=== PATIENT | female | born 1955 | race African-American/Black ===

== ENCOUNTER 2025-04-13 13:52 | Outpatient (AMB) | payer OTHER, SELFPAY ==
[2025-04-13 14:11] VITALS: BP 104/64; PULSE 73; TEMP 36.6; O2SAT 97; BMI 35.9
--- NOTE | 2025-04-13 14:11 | A.OFFPC_ITS ---
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 Osteoarthritis: The patient reports a longstanding history of osteoarthritis characterized by inflammation and significant joint pain, particularly in the knees. The pain has progressively worsened over time, leading to functional limitations, including a limp and the necessity to use both a cane and a walker for ambulation. She has previously undergone injections to alleviate knee pain and currently uses Tylenol to manage her symptoms. Unspecified Psychiatric Disorder: The patient has a complex psychiatric history involving the use of various medications, inclusive of lithium and risperidone. She currently resides in a [facility] custodial and denies any formal diagnosis of schizophrenia, as well as any recent psychiatric hospitalizations. Despite reported previous treatment and medication usage, she does not recall receiving psychiatric evaluations or encountering a psychiatrist recently. Insomnia: The patient experiences difficulties with sleep, which she manages through the administration of trazodone. She describes her sleep quality as acceptable with medication. Hypothyroidism: The patient recalls a history of thyroid issues and is uncertain about her current medication regimen for the condition. She has previously received treatment, though details regarding current levels and therapy are unclear. Tremors: The patient acknowledges experiencing tremors, which have been present for an unspecified duration. She is currently prescribed amantadine to manage these symptoms. Anemia: The patient reports a history of anemia for which she takes iron supplements. Additional details or lab results to assess the current status of her anemia were not provided. Surgical History: - No surgical history mentioned during t he visit. Medications: - Acetaminophen (Tylenol) for osteoarthr itis pain. - Amantadine for managing tremors. - Benztropine for psychiatric symptoms. - Ferrous sulfate for anemia. - [place] for psychiatric management. - Risperidone for psychiatric management . - Trazodone for insomnia. Social History: - Resides in a custodial provided by [facility]. - Not employed; participates in [employer] - Denies use of tobacco or illicit drugs . - Functional limitations necessitate use of a cane and a walker for ambulation. Family History: - No family history information discusse d during the visit. Diagnostic Results: - Labs: The patient reports having a dario mogram approximately three months ago; specific results were not discussed. Past Medical History - Osteoarthritis: History of joint pain, particularly in the knees. - schizophrenia: History of treatment wi th lithium, risperidone, and benztropine. - Hypothyroidism: Previous treatment for thyroid condition. - Tremors: Symptomatic management with a mantadine. - Insomnia: Managed with trazodone. - Anemia: Managed with iron supplements. Health Maintenance - Mammogram: Last conducted approximatel y three months ago; follow-up details are unspecified. - Colorectal Cancer Screening: Opted for stool-based test (Cologuard) over colonoscopy, which was arranged. - Cervical Cancer Screening: Denies Pap smear history; expresses refusal of cervical cancer screening. - Osteoporosis Screening: Uncertain abou t prior DEXA scan; discussed potential need for assessment. - Discussions included the importance of regular screening and preventative health measures. review of external medical record This summary is for a 69-year-old female with a complex medical history who resides in a custodial and is often accompanied to appointments by a shelter director. She has multiple chronic conditions managed by primary care, orthopedics, endocrinology, hematology, and psychiatry. The patient is often a poor historian, and her care involves managing chronic symptoms, ongoing monitoring of stable conditions, and coordinating with her various specialists. The patient has a long-standing history of schizophrenia, for which she is on a stable medication regimen including risperidone and lithium. Associated with her psychiatric medications, she has long-standing hyperprolactinemia, which is monitored by endocrinology and has been stable. She also has hypothyroidism, well-controlled with levothyroxine, and a small, stable right thyroid nodule confirmed on serial ultrasounds.?A DXA scan in June 2022 showed normal bone density. A significant source of morbidity is severe, stiff, varus osteoarthritis of both knees. Imaging from December 2022 and May 2024 confirmed severe degenerative changes.?This condition causes chronic pain (rated 8/10), swelling, stiffness, and gait instability, leading to a history of falls, including one in December 2022 that prompted an ER visit.?Treatment has included intra-articular corticosteroid injections with limited benefit, and she now manages pain with scheduled acetaminophen.?She has consistently declined orthopedic surgery, physical therapy, and the use of assistive devices like a cane or walker. The patient has been evaluated by hematology for chronic, stable, normocytic anemia. The workup has been largely unrevealing, suggesting anemia of chronic disease or related to mild chronic kidney disease (eGFR 51).?There is no evidence of iron deficiency, hemolysis, or hematologic malignancy.?Management consists of monitoring, reduced-frequency iron supplementation, and folic acid.?Referrals to nephrology have been placed for her kidney function. Other significant medical problems include morbid obesity (BMI ~35-45), constipation, scarring alopecia, and dizziness/vertigo.?Health screenings have been generally reassuring; a Cologuard test in 2022 was negative, and a screening mammogram in March 2024 showed no evidence of malignancy.?A limited breast ultrasound in August 2022 showed probably benign findings.?CT scans of her head and cervical spine in December 2022, following her fall, were negative for acute hemorrhage but did show chronic small vessel ischemia and degenerative changes. In April 2024, she presented to an urgent care clinic with respiratory symptoms and tested positive for COVID-19. She was hemodynamically stable and managed with supportive care.?The patient has consistently declined recommended vaccinations.?The overall plan involves continued medical management of her numerous chronic conditions, regular follow-up with her specialty providers, and ongoing encouragement for preventative care and safe mobility practices. She is scheduled for follow-up with hematology and primary care. The patient's current diagnoses include: Schizophrenia, Hyperprolactinemia (medication-induced), Hypothyroidism, Thyroid Nodule, Severe Bilateral Knee Osteoarthritis, Chronic Anemia (likely of chronic disease/renal insufficiency), Mild Chronic Kidney Disease, Morbid Obesity, Scarring Alopecia, and Dizziness/Vertigo. Her current active medication list as of her last primary care visit includes: acetaminophen, amantadine, benztropine, trazodone, risperidone, lithium, ferrous sulfate, levothyroxine, and meclizine, with senna as needed.?Folic acid was also recently added by her dental insurance coordinator. REPLACED BY [facility] Medical History (Updated 04/14/25 @ 10:24 by Hima Greer MD) Vertigo History of fall Osteoarthritis Family History (Updated 04/13/25 @ 14:14 by Annie Alexandra CMA) Mother No problems noted. Father No problems noted. Social History Housing: Assisted Living Facility Patient Tobacco Use Status: Never used Tobacco e-Cigarette/Vaping Use: Never Used service: No Current occupational status: disabled Cognitive needs: Yes (cane) Hearing needs: No Vision needs: Yes (glasses) Questionnaire PHQ-9 Over the last 2 weeks, how often have you been bothered by any of the following problems? 1. Little interest or pleasure in doing things: not at all 2. Feeling down, depressed, or hopeless: not at all 3. Trouble falling or staying asleep, or sleeping too much: not at all 4. Feeling tired or having little energy: not at all 5. Poor appetite or overeating: not at all 6. Feeling bad about yourself - or that you are a failure or have let yourself or your family down: not at all 7. Trouble concentrating on things, such as reading the newspaper or watching television: not at all 8. Moving or speaking so slowly that other people could have noticed. Or the opposite - being so fidgety or restless that you have been moving around a lot more than usual: not at all 9. Thoughts that you would be better off or of hurting yourself in some way: not at all Total score: 0 Depression Screening Interpretation: Negative Depression Screening Done: Yes Source: Developed by Drs. Joel Hernandez, Renetta Gilman, Antwan Ortega and colleagues, with an educational nigel from [employer]. Thrive Questionnaire Date Thrive assessed: 04/13/25 I am a: Patient What is your living situation today?: I have a steady place to live Within the past 12 months, did the food you bought not last and you didn't have the money to get more?: Never true Within the past 12 months, did you worry whether your food would run out before you got money to buy more?: Never true Do you have trouble paying for medicines?: No Do you have trouble getting transportation to medical appointments?: No Do you have trouble paying your heating and electricity bill?: No Do you have trouble taking care of your child, family member or friend?: No Are you currently unemployed and looking for a job?: No Are you interested in more education?: No Please select the resources that you would like help with: None Currently or been in a relationship where the following occur: No concerns reported THRIVE Score: 0 AUDIT C Alcohol Use Questionnaire (AUDIT-C) 1. How often do you have a drink containing alcohol?: Never Total Score: 0 JEWEL-7 AMB Questionnaire JEWEL-7 Feeling nervous, anxious, or on edge: 0 = Not at all Not being able to stop or control worryin = Not at all Worrying too much about different things: 0 = Not at all Trouble relaxin = Not at all Being so restless that it is hard to sit still: 0 = Not at all Becoming easily annoyed or irritable: 0 = Not at all Feeling afraid as if something awful might happen: 0 = Not at all Total JEWEL-7 score (0-4 normal; 5-9 mild; 10-14 moderate; 15-21 severe): 0 Source: Developed by Drs. Joel Hernandez, Renetta Gilman, Antwan Ortega and colleagues, with an educational nigel from [employer]. Review of Systems Narrative Review of Systems - Musculoskeletal: Reports joint pain and difficulty ambulating. - Neurological: Reports having tremors. - Psychiatric: Reports use of trazodone for sleep improvement. - Genitourinary: Reports normal urination. - Gastrointestinal: Reports regular bowel movements. 10-point ROS reviewed and negative except as noted in HPI Physical exam (Primary Care) Vital Signs: Last Vital Signs Temp 97.9 F 04/13/25 14:11 Pulse 73 04/13/25 14:11 BP 104/64 04/13/25 14:11 Pulse Ox 97 04/13/25 14:11 Oxygen Delivery Method Room Air 04/13/25 14:11 BMI result Body Mass Index 35.9 Tobacco/Smoking Status: Tobacco use Status Tobacco use date assessed 04/13/25 04/13/25 14:16 Patient Tobacco Use Status Never used Tobacco 04/13/25 14:16 e-Cigarette/Vaping Use Never Used 04/13/25 14:16 PHQ-9: PHQ-9 Score PHQ-9: Total score 0 04/13/25 15:46 Depression Screening Interpretation: Negative Thrive Assessment: Date of Thrive Assessment Date Thrive assessed 04/13/25 04/13/25 14:16 Currently or been in a relationship where the following occur: No concerns reported Narrative Physical Exam General: Well-appearing, in no acute distress. Vital signs: Within normal limits. HEENT: Normocephalic, atraumatic. PERRLA, EOMI. Conjunctiva clear, sclera anicteric. Oropharynx clear, mucous membranes moist. TMs intact bilaterally. Neck: Supple, no lymphadenopathy, no thyromegaly, no JVD or carotid bruits. Cardiovascular: RRR, normal S1/S2, no murmurs, rubs, or gallops. Peripheral pulses 2+ and symmetric. No edema. Respiratory: Lungs clear to auscultation bilaterally, no wheezes, rales, or rhonchi. Normal effort. Abdomen: Soft, non-tender, non-distended. Normoactive bowel sounds. No hepatosplenomegaly, no masses. MSK: Full range of motion, no joint swelling or deformity. gait with right side limp. Patient uses a cane and has a limp, possibly due to osteoarthritis. Skin: Warm, dry, intact. No rashes, lesions, or pallor. sarring alopecia predominantly posterior of the scalp Neuro: Alert and oriented x3. Cranial nerves II-XII intact. Strength 5/5 throughout. Sensation intact. Reflexes 2+ symmetric. Normal coordination . Psych: Appropriate mood and flat affect poor historian. Normal judgment and insight. Patient resides in a custodial and takes medications including lithium, risperidone, trazodone, benztropine, acetaminophen, ferrous sulphate, levothyroxine, and Tylenol. History of schizophrenia. No available objective history of seeing a psychiatrist, child care teacher mentions seeing a Dr. Garcia Office Procedures Flu Questionnaire Does the patient have a severe egg allergy?: No Does the patient have severe life threatening allergies?: No Does the patient have a fever or illness today?: No Has the patient ever had Guillain-Stateline Syndrome?: No Has the patient ever had any past reaction to a flu shot?: No Immunizations Fluarix [id number] (PF) 45 mcg (15 mcg x 3)/0.5 mL IM syringe Performing Provider: Hima Greer MD Performing Location: [facility] Administered by: Annie Alexandra CMA on 04/13/25 15:46 Dose Route Admin Location Dispensed Lot Number Expiration Date NDC [employer] Member 0.5 mL IM Left Deltoid 0.5 mL [id number] 10/23/25 51599-291-12 [employer] VIS Given Date VIS Provided VIS Publication Date 04/13/25 Single Vaccine 24 Eligibility Eligibility Date Funding Source Not [facility] Eligible 04/13/25 Private Coding Level of Care Code New Pt Level 4 (41280) Add On Problem Visit Only Diagnoses Hyperprolactinemia E22.1 Schizophrenia F20.9 Hypothyroid E03.9 Thyroid nodule E04.1 Osteoarthritis of both knees M17.0 Chronic pain G89.29 Use of cane as ambulatory aid Z99.89 Normocytic anemia D64.9 Chronic kidney disease N18.9 Scarring alopecia L66.9 Constipation K59.00 Assessment & Plan Assessment & Plan (1) Hyperprolactinemia: Code(s): E22.1 - Hyperprolactinemia Category: Medical (2) Schizophrenia: Code(s): F20.9 - Schizophrenia, unspecified Category: Medical (3) Hypothyroid: Code(s): E03.9 - Hypothyroidism, unspecified Category: Medical (4) Thyroid nodule: Code(s): E04.1 - Nontoxic single thyroid nodule Category: Medical (5) Osteoarthritis of both knees: Code(s): M17.0 - Bilateral primary osteoarthritis of knee Category: Medical (6) Chronic pain: Code(s): G89.29 - Other chronic pain Category: Medical (7) Use of cane as ambulatory aid: Code(s): Z99.89 - Dependence on other enabling machines and devices Category: Medical (8) Normocytic anemia: Code(s): D64.9 - Anemia, unspecified Category: Medical (9) Chronic kidney disease: Code(s): N18.9 - Chronic kidney disease, unspecified Category: Medical (10) Scarring alopecia: Code(s): L66.9 - Cicatricial alopecia, unspecified Category: Medical (11) Constipation: Code(s): K59.00 - Constipation, unspecified Category: Medical Plan Consent Verbal consent was obtained for routine blood work to assess sugar levels, urine, blood counts, and vitamin levels. The potential benefits and risks of these tests were discussed, and the patient understood the need for regular monitoring given her health conditions. Additionally, the patient consented to a stool-based colorectal cancer screening test after reviewing the benefits of this method over a colonoscopy, including the non-invasive nature and capability for early detection of any abnormalities. Patient was informed and verbally consented to the use of an ambient scribe for clinic note documentation during this visit. Plan 1. Osteoarthritis - Administer Tylenol for pain management. - Consider further investigational imaging to assess joint status if symptoms persist. 2. Schizophrenia Psychiatric Disorder - Continue current psychiatric medications, including lithium, risperidone, and benztropine. - Obtain psychiatric records for a more comprehensive understanding of her diagnosis. 3. Insomnia - Continue trazodone as per current regimen for sleep management. 4. Hypothyroidism - Verify patient's current medication status and consider re-evaluation of thyroid function with lab tests as necessary. 5. Tremors - Continue amantadine for symptom control. Monitor for side effects or need for dosage adjustment. 6. Anemia - Ensure adherence to iron supplementation; consider laboratory evaluation to assess current anemia status. Discussion Notes I emphasized the significance of maintaining her health through routine pre ventative care and regular follow-ups, even in the absence of symptomatic complaints. We discussed the need for laboratory tests to provide a comprehensive baseline for her metabolic status and medication management, such as kidney function given her lithium usage. We reviewed colorectal cancer screening options and the logistics of the Cologuard test, which she preferred. I highlighted the necessity for coordination with her custodialhome office representative concerning scheduling future appointments and preserving engagement in continuous care. Patient Instructions - Proceed to laboratory for blood work for baseline metabolic status. - A stool test kit for colon cancer (Cologuard) will be mailed for at-home sample collection. - Book a follow-up appointment in approximately two weeks to discuss lab results. - Maintain current medications as prescribed. Medical Decision Making Upon evaluating her complex medical history, the focus is on obtaining objective data through laboratory tests to assess her baseline metabolic function, including renal status relevant to her medication regimen. Given her reluctance for invasive procedures, the decision was made to pursue stool-based colorectal cancer screening. Her refusal of cervical cancer screening remains noted; however, it is crucial to keep emphasizing the importance of these preventive measures in future discussions. Coordinating with her psychiatric care providers and maintaining communication with her support system at the custodial are necessary to ensure a holistic, cohesive management approach. Total Time Statement 45 min Total time spent caring for the patient today includes pre-visit chart review, documentation, review of laboratory and diagnostic imaging results, medication reconciliation, medically necessary evaluation, counseling on diagnoses, care coordination, ordering appropriate tests and medications, review of tests performed by other providers, reporting test results to the patient, and communication with other healthcare providers. Orders: Orders Complete Blood Count Auto Diff 04/13/25 Z13.9 - Encounter for screening, unspecified TSH reflex Free T4 04/13/25 Z13.9 - Encounter for screening, unspecified HIV Ab/Ag 04/13/25 Z13.9 - Encounter for screening, unspecified Hemoglobin A1c 04/13/25 Z13.9 - Encounter for screening, unspecified Magnesium 04/13/25 Z13.9 - Encounter for screening, unspecified [place] 04/13/25 Z13.9 - Encounter for screening, unspecified Influenza [id number] Immunization 04/13/25 Z23 - Encounter for immunization Hepatitis B Surface Antigen 04/13/25 Z13.9 - Encounter for screening, unspecified Syphilis Screen 04/13/25 Z13.9 - Encounter for screening, unspecified Comprehensive Met. Panel 04/13/25 Z13.9 - Encounter for screening, unspecified Hepatitis C Antibody 04/13/25 Z13.9 - Encounter for screening, unspecified UA CC w/rflx Micro + Cult 04/13/25 Z13.9 - Encounter for screening, unspecified Lipid Panel 04/13/25 Z13.9 - Encounter for screening, unspecified Vitamin B12 and Folate 04/13/25 Z13.9 - Encounter for screening, unspecified Hepatitis B Surface Antibody 04/13/25 Z13.9 - Encounter for screening, unspecified Vitamin D 25-OH (D2 and D3) 04/13/25 Z13.9 - Encounter for screening, unspecified
--- OUTSIDE RECORDS SUMMARY | 2025-04-13 15:31 | XMS_ITS | Encounter Summary ---
Author Organization [facility] Prior to 02/25/2024 Address [address] [place] [address] Care Team Providers Care Utility Plant Operative Name Role Phone Mario Camarena MD Primary Care Provider Unavail able Randy Small MD Primary Care Provider [phone] Encounter Details Date Type Department Care Team Description 10/21/2010 Release of Information Medical Records [address] [place] [id number] Abstract, Provider Social History Tobacco Use Types Packs/Day Years Used Date Smoking Tobacco: Former Cigarettes 1 Smokeless Tobacco: Never Alcohol Use Standard Drinks/Week Comments No 0 (1 standard drink = 0.6 oz pur e alcohol) Sex Assigned at Date Recorded Not on file Job Start Date Occupation Industry Not on file Not on file Not on file documented as of this encounter Plan of Treatment Not on file documented as of this encounter Visit Diagnoses Not on filedocumented in this encounter Care Teams Utility Plant Operative Relationship Specialty Start Date End Date Mario Camarena MD PCP - General 09/11/10 11/29/19 Randy Small MD [address] [place] [id number] PCP - General Internal Medicine 11/30/19 documented as of this encounter
--- OUTSIDE RECORDS SUMMARY | 2025-04-13 15:31 | XMS_ITS | Encounter Summary ---
Author Organization [facility] Prior to 02/25/2024 Address [address] [place] [address] Care Team Providers Care Safe And Vault Installer Name Role Phone Mario Camarena MD Primary Care Provider Unavail able Randy Small MD Primary Care Provider [phone] Encounter Details Date Type Department Care Team Description 08/02/2017 Refill Adult Medicine [address] [address] Mario Camarena MD Social History Tobacco Use Types Packs/Day Years [...] on filedocumented in this encounter Care Teams Safe And Vault Installer Relationship Specialty Start Date End Date Mario Camarena MD PCP - General 09/11/10 11/29/19 Randy Small MD [address] [place] [id number] PCP - General Internal Medicine 11/30/19 documented as of this encounter
--- OUTSIDE RECORDS SUMMARY | 2025-04-13 15:31 | XMS_ITS | Encounter Summary ---
Author Organization [facility] Prior to 02/25/2024 Address [address] [place] [address] Care Team Providers Care Patient Ombudsperson Name Role Phone Randy Small MD Primary Care Provider [phone] Reason for Visit * Reason Comments E-prescribe Rx Request Encounter Details Date Type Department Care Team Description 02/13/2025 Refill Adult Medicine [address] [address] Mayelin Longo NP [address] [place] [id number] E-prescribe Rx Request Social History Tobacco Use Types Packs/Day Years Used Date Smoking Tobacco: Never Cigarettes 1 Smokeless Tobacco: Never Alcohol Use Standard Drinks/Week Comments No 0 (1 standard drink = 0.6 oz pur e alcohol) Sex Assigned at Date Recorded Not on file Job Start Date Occupation Industry Not on file Not on file Not on file documented as of this encounter Plan of Treatment Not on file documented as of this encounter Visit Diagnoses Diagnosis Hypothyroidism, unspecified type documented in this encounter Care Teams Patient Ombudsperson Relationship Specialty Start Date End Date Randy Small MD [address] [place] [id number] PCP - General Internal Medicine 11/30/19 documented as of this encounter
--- OUTSIDE RECORDS SUMMARY | 2025-04-13 15:31 | XMS_ITS | Encounter Summary ---
Author Organization [facility] Prior to 02/25/2024 Address [address] [place] [address] Care Team Providers Care Senior Enlisted Advisor Name Role Phone Randy Small MD Primary Care Provider [phone] Reason for Visit * Reason Onset Date Comments Testing 01/22/2021 [facility] Encounter Details Date Type Department Care Team Description 01/22/2021 Telephone Adult Medicine [address] [address] Randy Small MD [address] [place] [id number] Testing ([facility]) Social History Tobacco Use Types Packs/Day Years Used Date Smoking Tobacco: Never Cigarettes 1 Smokeless Tobacco: Never Alcohol Use Standard Drinks/Week Comments No 0 (1 standard drink = 0.6 oz pur e alcohol) Sex Assigned at Date Recorded Not on file Job Start Date Occupation Industry Not on file Not on file Not on file COVID-19 Exposure Response Date Recorded In the last month, have you been in contact with someone who was confirmed or suspected to have Coronavirus / COVID-19? No / Unsure 01/15/2021 1:42 PM EDT documented as of this encounter Miscellaneous Notes * Telephone Encounter - Randy Small MD - 01/22/2021 12:01 PM EDT Screening mammogram order signed * Telephone Encounter - Madison Garner M.A. - 01/22/2021 11:32 AM EDT Last office visit 12/26/20 with you, no record of mammo of file with us Order pended * Telephone Encounter - Gilma Wick - 01/22/2021 9:59 AM EDT Patient is requeting a referral for a Mamogram, please call her worker at [facility] to schedule the appointment. documented in this encounter Plan of Treatment Not on file documented as of this encounter Visit Diagnoses Diagnosis Encounter for screening mammogram for malignant neoplasm of breast- Primary Other screening mammogram documented in this encounter Care Teams Senior Enlisted Advisor Relationship Specialty Start Date End Date Randy Small MD [address] [place] [address] PCP - General Internal Medicine 11/30/19 documented as of this encounter
--- OUTSIDE RECORDS SUMMARY | 2025-04-13 15:31 | XMS_ITS | Encounter Summary ---
[facility] Address [address] [place] [address] Encounters * CPT with [facility] at [facility] [employer] on 2025-01-30 { reasonForRequest : nausea/abdominal pain , patientReports : Vague abdominal pain greater than 24 hours; Nausea with or without vomiting , denies :[& quot;Sharp focal or diffuse abdominal pain , Vomiting blood/coffee ground material , Bloating, jaundice new onset with pain , Nausea and vomiting greater than 2 hours with abdominal pain , Tearing pain that radiates to back , Food Impaction ,"Constipation , Diarrhea no blood in stool , Inability to tolerate foods, fluids or daily medications ], chiefComplaints : Abdominal Pain, Nausea / Vomit ing , pmh : Severe Persistent Mental Illness (SPMI), Rheumatoid Arthritis, Anemi a, Chronic Pain , allergies : No Known Drug Allergies , otherAllergies : , painAssessment : , visitOutcome : ,"additionalComments : 69 y.o female complains of Abdominal Pain, Nausea / Vomiting\[facility] referral. patient states symptoms started yesterday. Denies any fever but endorses chills and body aches. denies any nasal congestion. denies any coughing or sore throat. endorses nausea and vomiting x 1 yesterday but nausea continues. denies any loose stool. last bowel movement yesterday morning. endorses abdominal pain and comes and goes in the lower stomach. she cant recall anything that makes the pain worse. patient hasn't tried to take anything for her stomach. patient denies any kidney issues and is not on any blood thinners. requesting insted assessment. unsure of sick contacts but goes to a day program. \nI provided information on the mobile health provider response time and advised the patient and/or caregiver to monitor reported signs and symptoms. I discussed thewarning signs of when to seek emergency care. } Sent to a call for a pt complaining of nausea and vomiting. [facility] arrives on scene, pt is alert and oriented, airway is patent. Pt lives in a retirement, and has orders for Meclizine 12.5mg TID for dizziness. Staff states pt doesn't have any meclizine and hasn't needed it recently. Pt complains of nausea, vomiting x 1, diffuse abd pain yesterday, and headache and dizziness today. Pt denies cp, sob,diarrhea, fever, or loc. Pt has been eating/drinking normally. Allergies verified: NKDA; (sitting) BP:131/88, P:71, RR:18, SpO2:95% RA, T:98.2; (standing) BP:126/85, P:82; Head: unremarkable; Lung sounds: clear bilaterally; Abdomen: soft, non-tender, no distention; Back: unremarkable; Extremities: u nremarkable; Skin: pink, warm, dry; Rapid covid/flu test: neg; [facility] consulted and orders Zofran ODT 4mg SL and Meclizine 25mg PO. 5 med rights verified; Zofran ODT 4mg SL and Meclizine 25mg PO administered without incident. Staff advised to follow up with pt's PCP regarding Meclizine prescription. Red flags discussed. Pt has no further questions. IV_(FLUIDS_AND/OR_MEDICATION), MEDICATION_IM, EKG, POC_BLOODWORK, URINE_DIPSTICK Written by Medical [facility] on 2025-01-30
--- OUTSIDE RECORDS SUMMARY | 2025-04-13 15:31 | XMS_ITS | Clinical Summary ---
Author Organization [facility] [address] [facility] Building Address [address] [place] [address] Phone Care Team Providers Care Sports Athletic Trainer Name Role Phone Unavailable Primary Care Provider Unavailabl e Allergies No known active allergies Medications benztropine (COGENTIN) 1 mg tablet Take 1 Tablet by mouth every morning AND 2 Tablets every evening. 3 Active lithium (ESKALITH) 450 mg CR tablet Take 1 tablet (450 mg total) by mouth at bedtime. Active risperiDONE (RisperDAL) 2 mg tablet Take 1 tablet (2 mg total) by mouth 3 (three) times a day. Active traZODone (DESYREL) 50 mg tablet 0 Active amantadine (SYMMETREL) 100 mg tablet Take 1 tablet (100 mg total) by mouth 3 (three) times a day. 4 Active acetaminophen (TYLENOL 8 HOUR) 650 mg 8 hr tabletIndications:O steoarthritis of both knees, unspecified osteoarthritis type Take 1 tablet (650 mg total) by mouth 3 (three) times a day. Do not crush, chew, or split. 90 tablet 11 5 05/26/19 26 Active senna (SENOKOT) 8.6 mg tablet Take 2 tablets (17.2 mg total) by mouth 1 (one) time each day if needed for constipation . 60 tablet 2 5 Active ferrous sulfate 325 mg (65 mg elemental iron) tabletIndications:I debbie deficiency anemia, unspecified Take 1 tablet (325 mg total) by mouth 1 (one) time each day. 90 tablet 1 5 Active meclizine (ANTIVERT) 12.5 mg tablet Take 1 tablet (12.5 mg total) by mouth 1 (one) time each day if needed (VERTIGO). 30 tablet 3 5 Active folic acid (FOLVITE) 1 mg tablet Take 1 tablet (1 mg total) by mouth 1 (one) time each day. 90 each 1 5 01/31/20 26 Active folic acid (FOLVITE) 1 mg tablet Take 1 tablet (1 mg total) by mouth 1 (one) time each day. 90 each 1 5 01/31/20 26 Active levothyroxine (SYNTHROID, LEVOTHROID) 25 mcg tablet Take 1 tablet (25 mcg total) by mouth 1 (one) time each day. 90 tablet 5 Active Active Problems Problem Noted Date Diagnosed Date Primary osteoarthritis of left knee 05/31/2024 Thyroid nodule 02/10/2023 Overview (02/11/2024): Tiny nodule, repeat us in 1 year (fall 2023) ordered Primary osteoarthritis of right knee 11/14/2018 Hypothyroid 02/09/2014 Hyperprolactinemia 07/31/2013 Overview (02/11/2024): Level 106.9 on labs ordered by [facility] 07/07/13. Scarring alopecia 09/02/2011 Iron deficiency anemia 10/17/2010 Obesity (BMI 30-39.9) 10/17/2010 Schizophrenia 10/17/2010 Resolved Problems Problem Noted Date Diagnosed Date Resolved Date Elevated serum creatinine 06/13/2024 High glucose 06/13/2024 10/11/2024 Gait instability 05/31/2024 10/11/2024 History of COVID-19 01/13/2023 10/12/19 25 Overview (05/30/2024): 01/04/23 - incidental at ED for other concern. Completed paxlovid Encounters Date Type Department Care Team Description 02/21/2025 Telephone Internal Medicine - [address] [phone] Sena Mchugh MD 02/20/2025 Telephone Internal Medicine - [address] [phone] Sena Mchugh MD 01/31/2025 Results Follow-Up [facility] Hematology Oncology [address] [place] [phone] Michelle Maya PA 01/30/2025 11:30 AM EDT Office Visit [facility] Hematology Oncology [address] [place] [phone] Michelle Maya PA Iron deficiency anemia, unspecified iron deficiency anemia type (Primary Dx); Nutritional anemia; Stage 3a chronic kidney disease (CMS/HCC V24, CMS/HCC V28) 01/26/2025 1:50 PM EDT - 01/26/2025 11:59 PM EDT Hospital Encounter Radiology Department - [address] [phone] Encounter for screening mammogram for malignant neoplasm of breast Discharge Disposition: Home or Self Care 01/15/2025 Telephone Internal Medicine - [address] [phone] Randy Small MD from Last 3 Months Immunizations Immunization Administration Dates Next Due Influenza Quadravalent, MDCK , 0.5ml, preservative free (Flucelvax) 6mo and older 01/09/2020,06/23/2018 Influenza trivalent, 0.5mL, preservative free (Fluarix; FluLaval; Fluzone) ages 6mo and older (Afluria) 3 years and older 02/22/2015,02/09/2014,02/24/2013,2011 Influenza, Unspecified 01/26/2022 Tdap Tetanus diptheria acell ular pertussis (Boostrix; Adacel) 7yo and older 10/17/2010 Medical History Medical History Date Comments History of COVID-19 01/13/2023 DX:History o f COVID-19; COMMENT: 01/04/23 - incidental at ED for other concern. Completed paxlovid Thyroid nodule 02/10/2023 DX:Thyroid nodul e; COMMENT: Tiny nodule, repeat us in 1 year (fall 2023) ordered Family History Medical History Relation Name Comments Diabetes Mother Breast cancer Neg Hx Relation Name Status Comments Mother Social History Tobacco Use Types Packs/Day Years Used Date Smoking Tobacco: Never Cigarettes Smokeless Tobacco: Never Tobacco Cessation:Counseling Given: Not Answered Alcohol Use Standard Drinks/Week Comments No 0 (1 standard drink = 0.6 oz pur e alcohol) Comments No Sex and Gender Information Value Date Recorded Sex Assigned at Not on file Legal Sex Female 7:52 AM EST Gender Identity Not on file Sexual Orientation Not on file Obstetrics History Para Term AB IAB SAB Ectopic Multiple Livin g Live Births 1 Date Outcome GA Total Labor Labor/2nd/3rd Weight Sex Type Anes PTL Louisa A1 A5 Name Clin Term Last Filed Vital Signs Vital Sign Reading Time Taken Comments Blood Pressure 105/39 01/30/2025 11:40 AM EDT Pulse 62 01/30/2025 11:40 AM EDT Temperature 36.1 C (97 F) 01/30/2025 11:40 AM EDT Respiratory Rate - - Oxygen Saturation 100% 01/30/2025 11:40 AM EDT Inhaled Oxygen Concentration - - Weight 93.9 kg (207 lb) 01/30/2025 11:40 AM EDT Height 165.1 cm (5' 5 ) 01/30/2025 11:40 AM EDT Body Mass Index 34.45 01/30/2025 11:40 AM EDT Plan of Treatment Upcoming Encounters Date Type Department Care Team (Late st Contact Info) Description 07/31/2025 11:30 AM EDT Office Visit [facility] Hematology Oncology [address] [place] [phone] Michelle Maya PA [address] [place] [address] Health Maintenance Due Date Last Done Comments Zoster Vaccines (1 of 2) 1976 Pneumococcal Vaccine: 50+ Years (1 of 1 - PCV) 08/28/2007 COVID-19 Vaccine (3 - Pfizer risk series) 07/16/2020 06/18/2020, 05/28/2020 DTaP,Tdap,and Td Vaccines (2 - Td or Tdap) 10/17/2020 10/17/2010 Colorectal Cancer Screening: FIT-DNA (Cologuard) 04/04/2022 Medicare Annual Wellness Visit 04/04/2022 Social Influencers of Health Screening 04/04/2022 Falls Risk Assessment 2022 Depression Screening 04/26/2024 Influenza Vaccine (#1) 2024 , 01/09/2020, 06/23/2018, Additional history exists Breast Cancer Screening 01/26/2027 01/26/2025, 02/19 Cholesterol Screening (Lipid Panel) 03/29/2029 03/29/2024, 12/07/2022 Osteoporosis Screening (Bone Density Screening) 07/23/2032 07/23/2022 RSV Immunization Adult Patients (1 - 1-dose 75+ series) 2032 Hepatitis C Screening Completed 10/28/2012 HIB Vaccines Aged Out No longer eligi ble based on patient's age to complete this topic HPV Vaccines Aged Out No longer eligi ble based on patient's age to complete this topic Hepatitis A Vaccines Aged Out No long er eligible based on patient's age to complete this topic Hepatitis B Vaccines Aged Out No long er eligible based on patient's age to complete this topic IPV Vaccines Aged Out No longer eligi ble based on patient's age to complete this topic MMR Vaccines Aged Out No longer eligi ble based on patient's age to complete this topic Meningococcal ACWY Vaccine Aged Out N o longer eligible based on patient's age to complete this topic Meningococcal B Vaccine Aged Out No l onger eligible based on patient's age to complete this topic RSV Immunization Patients Under 20 months Aged Out No longer eligible based on patient's age to complete this topic Varicella Vaccines Aged Out No longer eligible based on patient's age to complete this topic Procedures Procedure Name Priority Date/Time Associated Diagnosis Comments CBC WITH AUTO DIFFERENTIAL Routine 01/30/2025 12:38 PM EDT Iron deficiency anemia, unspecified iron deficiency anemia type Stage 3a chronic kidney disease ([facility] V24, [facility]/HCC V28) VITAMIN B12 AND FOLATE Routine 01/30/2025 12:38 PM EDT Nutritional anemia IRON AND TIBC Routine 01/30/2025 12:38 PM EDT Iron deficiency anemia, unspecified iron deficiency anemia type Stage 3a chronic kidney disease (CMS/HCC V24, CMS/HCC V28) FERRITIN Routine 01/30/2025 12:38 PM EDT Iron deficiency anemia, unspecified iron deficiency anemia type Stage 3a chronic kidney disease (CMS/HCC V24, CMS/HCC V28) CBC AND DIFFERENTIAL Routine 01/30/2025 12:38 PM EDT Iron deficiency anemia, unspecified iron deficiency anemia type Stage 3a chronic kidney disease (CMS/HCC V24, CMS/HCC V28) BASIC METABOLIC PANEL Routine 01/30/2025 12:38 PM EDT Iron deficiency anemia, unspecified iron deficiency anemia type Stage 3a chronic kidney disease (CMS/HCC V24, CMS/HCC V28) MG MAMMO DIGITAL SCREENING W AZAM BILAT Routine 01/26/2025 2:18 PM EDT Encounter for screening mammogram for malignant neoplasm of breast LIPID PANEL WITH REFLEX TO DIRECT LDL Routine 03/29/2024 9:29 AM EST Routine general medical examination at a health care facility DXA BONE DENSITY STUDY 1+ SITS AXIAL SKEL Routine 07/23/2022 10:19 AM EDT Encounter for screening for osteoporosis HEPATITIS C SCREENING Routine 10/28/2012 from Last 3 Months or Most Recently Relevant to Health Maintenance Results * (ABNORMAL) Vitamin B12 and folate (01/30/2025 12:38 PM EDT) [facility] Vitamin B-12 826 250 - 900 pcg/mL LAB CHEMISTRY METHOD 01/30/2025 3:05 PM EDT [facility] Folate >20.0(H) 2.8 - 17.0 ng/ml LAB CHEMISTRY METHOD 01/30/2025 3:05 PM EDT [facility] Blood Venous blood specimen / Unknown Venipuncture / Unknown 01/30/2025 12:38 PM EDT 01/30/2025 1:34 PM EDT us Michelle LOMAX LAB BLOOD ORDERABLES Final Re sult [facility] [address] [place] [address], [place] [phone] * (ABNORMAL) CBC auto differential (01/30/2025 12:38 PM EDT) WBC 6.1 4.8 - 10.8 K/mcL LAB HEMETOLOGY METHOD 01/30/2025 1:43 PM EDT [facility] RBC 3.70(L) 3.80 - 4.80 M/mcL LAB HEMETOLOGY METHOD 01/30/2025 1:43 PM EDT [facility] Hemoglobin 10.5(L) 11.5 - 16.0 g/dL LAB HEMETOLOGY METHOD 01/30/2025 1:43 PM EDT [facility] Hematocrit 34.8(L) 35.0 - 47.0 % LAB HEMETOLOGY METHOD 01/30/2025 1:43 PM EDT [facility] MCV 93.8 79.0 - 98.0 FL LAB HEMETOLOGY METHOD 01/30/2025 1:43 PM EDT [facility] MCH 28.3 27.0 - 32.0 pcg LAB HEMETOLOGY METHOD 01/30/2025 1:43 PM EDT [facility] MCHC 30.2(L) 32.0 - 37.0 g/dL LAB HEMETOLOGY METHOD 01/30/2025 1:43 PM EDT [facility] RDW 12.6 11.0 - 15.0 % LAB HEMETOLOGY METHOD 01/30/2025 1:43 PM EDT [facility] Platelets 263 130 - 400 K/mcL LAB HEMETOLOGY METHOD 01/30/2025 1:43 PM [facility] MPV 10.5 7.0 - 11.0 FL LAB HEMETOLOGY METHOD [facility]/30[facility]2025 1[facility] NRBC 0.0 <1.0 % LAB HEMETOLOGY METHOD 01/30/2025 1:43 PM [facility] NRBC Absolute 0.00 <0.10 K/mcL LAB HEMETOLOGY METHOD 01/30/2025 1:[facility] Neutrophils Relative 53.3 % LAB HEMETOLOGY METHOD 01/30/2025 1:43 PM [facility] Lymphocytes Relative 35.5 % LAB HEMETOLOGY METHOD 01/30/2025 1:43 PM [facility] Monocytes Relative 8.2 % LAB HEMETOLOGY METHOD 01/30/2025 1:43 PM [facility] Eosinophils Relative 2.1 % LAB HEMETOLOGY METHOD 01/30/2025 1:43 PM [facility] Basophils Relative 0.7 % LAB HEMETOLOGY METHOD 01/30/2025 1:43 PM [facility] Immature Granulocytes Relative 0.2 % LAB HEMETOLOGY METHOD 01/30/2025 1:43 PM [facility] Neutrophils Absolute 3.24 1.50 - 7.00 K/mcL LAB HEMETOLOGY METHOD 01/30/2025 1:43 PM [facility] Lymphocytes Absolute 2.16 1.00 - 5.00 K/mcL LAB HEMETOLOGY METHOD 01/30/2025 1:43 PM [facility] Monocytes Absolute 0.50 0.20 - 1.00 K/[facility] LAB HEMETOLOGY METHOD 01/30/2025 1:43 PM EDT [facility] Eosinophils Absolute 0.13 0.00 - 0.50 K/[facility] LAB HEMETOLOGY METHOD 01/30/2025 1:43 PM EDT [facility] Basophils Absolute 0.04 0.00 - 0.20 K/[facility] LAB HEMETOLOGY METHOD 01/30/2025 1:43 PM EDT [facility] Immature Granulocytes Absolute 0.01 0.00 - 0.03 K/[facility] LAB HEMETOLOGY METHOD 01/30/2025 1:43 PM EDT [facility] Blood Venous blood specimen / Unknown Venipuncture / Unknown 01/30/2025 12:38 PM EDT 01/30/2025 1:35 PM EDT us Michelle LOMAX LAB BLOOD ORDERABLES Final Re sult [facility] [address] [place] [address], [place] [phone] * (ABNORMAL) Iron and TIBC (01/30/2025 12:38 PM EDT) Iron 93 40 - 150 mcg/dL LAB CHEMISTRY METHOD 01/30/2025 3:05 PM EDT [facility] TIBC 229(L) 250 - 450 mcg/dL LAB CHEMISTRY METHOD 01/30/2025 3:05 PM EDT [facility] Iron Saturation 41 15 - 50 % LAB CHEMISTRY METHOD 01/30/2025 3:05 PM EDT [facility] Blood Venous blood specimen / Unknown Venipuncture / Unknown 01/30/2025 12:38 PM EDT 01/30/2025 1:34 PM EDT Michelle OLMAX LAB BLOOD ORDERABLES Final Re sult Performing Organization Address City/[facility]/ZIP Co de Phone Number [facility] [address] [place] [address], [place] [phone] * (ABNORMAL) Ferritin (01/30/2025 12:38 PM EDT) Ferritin 468(H) 8 - 252 ng/mL LAB CHEMISTRY METHOD 01/30/2025 3:05 PM EDT [facility] Blood Venous blood specimen / Unknown Venipuncture / Unknown 01/30/2025 12:38 PM EDT 01/30/2025 1:34 PM EDT Michelle LOMAX LAB BLOOD ORDERABLES Final Re sult Performing Organization Address [facility]/ZIP Co de Phone Number [facility] [address] [place] [address], [place] [phone] * (ABNORMAL) Basic metabolic panel (01/30/2025 12:38 PM EDT) Pathologist [facility] Sodium 137 133 - 145 mmol/L LAB CHEMISTRY METHOD 01/30/2025 3:05 PM [facility] Potassium 4.3 3.5 - 5.5 mmol/L LAB CHEMISTRY METHOD 01/30/2025 3:05 PM [facility] Chloride 107 96 - 110 mmol/L LAB CHEMISTRY METHOD 01/30/2025 3:05 PM [facility] CO2 23 21 - 32 mmol/L LAB CHEMISTRY METHOD 01/30/2025 3:05 PM [facility] Anion Gap 7 3 - 11 LAB CHEMISTRY METHOD 01/30/2025 3:05 PM [facility] Glucose 95 70 - 100 mg/dL LAB CHEMISTRY METHOD 01/30/2025 3:05 PM [facility] BUN 11 5 - 25 mg/dL LAB CHEMISTRY METHOD 01/30/2025 3:05 PM EDT [facility] Creatinine 0.94 0.50 - 1.10 mg/dL LAB CHEMISTRY METHOD 01/30/2025 3:05 PM EDT [facility] eGFR 67 >=60 mL/min/1. 73m2 LAB CHEMISTRY METHOD 01/30/2025 3:05 PM EDT [facility] Comment:Calculation based on the Chronic Kidney Disease Epidemiology Collaboration (CKD-EPI) equation refit without adjustment for race. BUN/Creatinine Ratio 11.7 LAB CHEMISTRY METHOD 01/30/2025 3:05 PM EDT [facility] Calcium 10.6(H) 8.5 - 10.5 mg/dL LAB CHEMISTRY METHOD 01/30/2025 3:05 PM EDT [facility] Blood Venous blood specimen / Unknown Venipuncture / Unknown 01/30/2025 12:38 PM EDT 01/30/2025 1:34 PM EDT us Michelle LOMAX LAB BLOOD ORDERABLES Final Re sult [facility] [address] [place] [address], [place] [phone] * MG Mammo Digital Screening w Azam bilat (01/26/2025 2:18 PM EDT) Anatomical Region Laterality Modality Breast Bilateral Mammography 01/29/2025 4:29 PM EDT Impressions 01/29/2025 4:35 PM EDT No mammographic evidence of malignancy. BI-RADS CATEGORY: 1 - NEGATIVE RECOMMENDATION: Screening bilateral mammogram is recommended in 1 year. Mammo Location: [facility], [address] [place] [address], [id number], . -------- FINAL REPORT -------- Dictated By: Michelle Wilkins Dictated Date: 01/29/2025 16:29 ET Assigned Physician: Michelle Wilkins Reviewed and Electronically Signed By: Michelle Wilkins Signed Date: 01/29/2025 16:35 ET Workstation ID: [id number] Transcribed By: Self Edit Transcribed Date: 01/29/2025 16:29 ET Narrative 01/29/2025 4:35 PM EDT Bilateral screening mammogram. CLINICAL: 69 years old, Female, routine annual exam. COMPARISON: Prior mammograms from 02/19/2022. TECHNIQUE: Bilateral MLO and CC views were obtained digitally with 2 D C views and 3-D mammogram (digital breast tomosynthesis). Computer-aided detection was utilized in evaluation of this exam (CAD). FINDINGS: There is no evidence of suspicious mass or architectural distortion. No worrisome calcifications are evident. There has been no significant change from prior exam(s). BREAST DENSITY: B - There are scattered areas of fibroglandular density. Procedure Note Michelle Wilkins MD - 01/29/2025 Bilateral screening mammogram. CLINICAL: 69 years old, Female, routine annual exam. COMPARISON: Prior mammograms from 02/19/2022. TECHNIQUE: Bilateral MLO and CC views were obtained digitally with 2 D Cviews and 3-D mammogram (digital breast tomosynthesis). Computer-aideddetection was utilized in evaluation of this exam (CAD). FINDINGS: There is no evidence of suspicious mass or architectural distortion. Noworrisome calcifications are evident. There has been no significantchange from prior exam(s). BREAST DENSITY: B - There are scattered areas of fibroglandular density. IMPRESSION: No mammographic evidence of malignancy. BI-RADS CATEGORY: 1 - NEGATIVE RECOMMENDATION: Screening bilateral mammogram is recommended in 1 year. Mammo Location: [facility], [address] [place] [address], [id number], . -------- FINAL REPORT -------- Dictated By: Michelle Wilkins Dictated Date: 01/29/2025 16:29 ET Assigned Physician: Michelle Wilkins Reviewed and Electronically Signed By: Michelle Wilkins Signed Date: 01/29/2025 16:35 ET Workstation ID: [id number] Transcribed By: Self Edit Transcribed Date: 01/29/2025 16:29 ET us Randy Small MD IMG BI PROCEDURES Final R esult * Lipid panel with reflex to direct LDL (03/29/2024 9:29 AM EST) Cholesterol 197 0 - 200 mg/dL LAB CHEMISTRY METHOD 03/29/2024 1:57 PM EST [facility] Triglycerides 71 0 - 150 mg/dL LAB CHEMISTRY METHOD 03/29/2024 1:57 PM EST [facility] HDL 87 >=40 mg/dL LAB CHEMISTRY METHOD 03/29/2024 1:57 PM EST [facility] LDL Calculated 96 0 - 100 mg/dL LAB CHEMISTRY METHOD 03/29/2024 1:57 PM EST [facility] VLDL Cholesterol Suleiman 14.2 mg/dL LAB CHEMISTRY METHOD 03/29/2024 1:57 PM EST [facility] Non HDL Chol. (LDL+VLDL) 110 <145 mg/dL LAB CHEMISTRY METHOD 03/29/2024 1:57 PM EST [facility] Chol/HDL Ratio 2.3 0.0 - 4.4 LAB CHEMISTRY METHOD 03/29/2024 1:57 PM EST [facility] Blood Venous blood specimen / Unknown Venipuncture / Unknown 03/29/2024 9:29 AM EST 03/29/2024 9:29 AM EST us Randy Small MD LAB BLOOD ORDERABLES Arelis l Result [facility] [address] [place] [address], * DXA BONE DENSITY STUDY 1+ SITS AXIAL SKEL (07/23/2022 10:19 AM EDT) Anatomical Region Laterality Modality Bone Densitometr y 01/12/2022 10:3 2 AM EDT Narrative 07/23/2022 4:21 PM EDT BONE DENSITY Lumbar Spine T-score is +0.5 (SD relative to 20-29 y/o adult) Z-score is +1.5 (SD relative to age matched peers) This is normal by criteria defined by the WHO. Left Hip T-score is +0.8 Z-score is +1.0 This is normal by criteria defined by the WHO. Comparison exam(s): significant increase in bone density of hip when compared to most recent bone density examination Confidence level is +/-95%. Impression: Based on the World Health Organization criteria, Aggie Moulton should be classified as having normal bone density. The [facility] Department of Internal Medicine recommends using National Osteoporosis Foundation (NOF) guidelines in treatment decisions related to osteoporosis. NOF guidelines suggest considering treatment for postmenopausal women and men aged 50 or older presenting with the following: History of hip or vertebral fracture. T-score less than or equal to -2.5 (DXA) at the femoral neck, total hip, or spine, after appropriate evaluation to exclude secondary causes. Low bone mass (T-score between -1.0 and -2.5 at the femoral neck or spine) AND a 10-year probability of a hip fracture greater than or equal to 3% OR a 10-year probability of a major osteoporosis-related fracture greater than or equal to 20% based on the [place]-adapted WHO algorithm Please note that all treatment decisions require clinical judgment and consideration of individual patient factors, including patient preferences, co-morbidities, previous drug use, risk factors not captured in the FRAX model (e.g., frailty, falls, vitamin D deficiency, increased bone turnover, interval significant decline in bone density) and possible under- or over-estimation of fracture risk by FRAX. Procedure Note Michelle Wilkins MD - 06/01/2023 BONE DENSITY Lumbar Spine T-score is +0.5 (SD relative to 20-29 y/o adult) Z-score is +1.5 (SD relative to age matched peers) This is normal by criteria defined by the WHO. Left Hip T-score is +0.8 Z-score is +1.0 This is normal by criteria defined by the WHO. Comparison exam(s): significant increase in bone density of hip whencompared to most recent bone density examination Confidence level is +/-95%. Impression: Based on the World Health Organization criteria, Aggie Moulton should beclassified as having normal bone density. The [facility] Department of Internal Medicine recommendsusing National Osteoporosis Foundation (NOF) guidelines in treatmentdecisions related to osteoporosis. NOF guidelines suggest consideringtreatment for postmenopausal women and men aged 50 or older presentingwith the following: History of hip or vertebral fracture. T-score less than or equal to -2.5 (DXA) at the femoral neck, total hip,or spine, after appropriate evaluation to exclude secondary causes. Low bone mass (T-score between -1.0 and -2.5 at the femoral neck or spine)AND a 10-year probability of a hip fracture greater than or equal to 3% ORa 10-year probability of a major osteoporosis-related fracture greaterthan or equal to 20% based on the [place]-adapted WHO algorithm Please note that all treatment decisions require clinical judgment andconsideration of individual patient factors, including patientpreferences, co-morbidities, previous drug use, risk factors not capturedin the FRAX model (e.g., frailty, falls, vitamin D deficiency, increasedbone turnover, interval significant decline in bone density) and possibleunder- or over-estimation of fracture risk by FRAX. Akin Mix MD IMG DXA PROCEDURES Final Result * Hepatitis C Screening (10/28/2012) [facility] Hepatitis C Screening Abstracted Historical Provider HEALTH MAINTENANCE Final Result from Last 3 Months or Most Recently Relevant to Health Maintenance Insurance [facility] MEDICARE Member Subscriber Plan / Payer (Ef fective 2022-Present) Name:Aggie Moulton Relation to Subscriber:Self Name:Aggie Moulton Payer ID:[id number] Group ID:[id number] Type:Not on file Address: [address] [phone]
--- OUTSIDE RECORDS SUMMARY | 2025-04-13 15:31 | XMS_ITS | Encounter Summary ---
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 Phone Mario Camarena MD Primary Care Provider Unavail Randy Orellana MD Primary Care Provider +1 [phone] Reason for Visit * Reason Onset Date Comments Publicity Director Feedback 05/24/2013 Encounter Details Date Type Department Care Team Description 05/24/2013 Telephone Adult Medicine [address] [address] Paul Robb PA-C Publicity Director Feedback Social History Tobacco Use Types Packs/Day Years Used Date Smoking Tobacco: Former Cigarettes 1 Smokeless Tobacco: Never Alcohol Use Standard Drinks/Week Comments No 0 (1 standard drink = 0.6 oz pur e alcohol) Sex Assigned at Date Recorded Not on file Job Start Date Occupation Industry Not on file Not on file Not on file documented as of this encounter Miscellaneous Notes * Telephone Encounter - Joy Villarreal M.A. - 05/24/2013 3:05 PM EST Form located and faxed * Telephone Encounter - Ignacia Lerma M.A. - 05/24/2013 3:05 PM EST * Telephone Encounter - Paul Robb PA-C - 05/24/2013 2:54 PM EST NO idea what form is being sent. Never have been given form yesterday or today * Telephone Encounter - Ignacia Lerma M.A. - 05/24/2013 2:43 PM EST mu 1.23.14 with Marianne Robb for cough / [facility] [place] form to Paul for signature * Telephone Encounter - Susan Donnelly - 05/24/2013 8:22 AM EST Form from [facility] to triage. Second request. Another form put in Paul's mailbox yesterday. documented in this encounter Plan of Treatment Not on file documented as of this encounter Visit Diagnoses Not on filedocumented in this encounter Care Teams Diesel Trailer Mechanic Relationship Specialty Start Date End Date Mario Camarena MD PCP - General 09/11/10 11/29/19 Randy Small MD [address] [place] [address] PCP - General Internal Medicine 11/30/19 documented as of this encounter
--- OUTSIDE RECORDS SUMMARY | 2025-04-13 15:31 | XMS_ITS | Encounter Summary ---
Author Organization [facility] Prior to 02/25/2024 Address [address] [place] [address] Care Team Providers Care Employment Programs Analyst Name Role Phone Mario Camarena MD Primary Care Provider Unavail Randy Orellana MD Primary Care Provider [phone] [phone] Reason for Visit * Reason Onset Date Comments Provider Call Back 02/03/2012 Encounter Details Date Type Department Care Team Description 02/03/2012 Telephone Adult Medicine [address] [address] Mario Camarena MD Provider Call Back Social History Tobacco Use Types Packs/Day Years [...] encounter Miscellaneous Notes * Telephone Encounter - Dulce Sal L.P.N. - 02/03/2012 11:55 AM EDT Called Tasneem At Dr. Amos's office Informed her could not find documentation of scalp biopsy , pt has not seen derm here has appt 02/22 * Telephone Encounter - Susan Donnelly - 02/03/2012 11:37 AM EDT Tasneem from Dr. Joel Amos's office called. They are looking for results of a scalp biopsy on [place]. Medical records does not have. Please call them to let them know where the biopsy was doneand if it was done. Dr. Amos's number is [phone]. Thanks. documented in this encounter Plan of Treatment Not on file documented as of this encounter Visit Diagnoses Not on filedocumented in this encounter Care Teams Employment Programs Analyst Relationship Specialty Start Date End Date Mario Camarena MD PCP - General 09/11/10 11/29/19 Randy Small MD [address] [place] [address] PCP - General Internal Medicine 11/30/19 documented as of this encounter
--- OUTSIDE RECORDS SUMMARY | 2025-04-13 15:31 | XMS_ITS | Encounter Summary ---
Author Organization [facility] Prior to 02/25/2024 Address [address] [place] [address] Care Team Providers Care Middle School Spanish Teacher Name Role Phone Mario Camarena MD Primary Care Provider Unavail Randy Orellana MD Primary Care Provider [phone] [phone] Reason for Visit * Reason Onset Date Comments Faxed Order 06/07/2018 [facility] Encounter Details Date Type Department Care Team Description 06/07/2018 Telephone Adult Medicine [address] [address] Mario Camarena MD Faxed Order ([facility] Social History Tobacco Use Types Packs/Day Years [...] encounter Miscellaneous Notes * Telephone Encounter - Ludmila Cruz - 06/07/2018 2:11 PM EST [facility] interofficed care plans for to review, sign, date and interoffice back in enclosed envelope Placed in 's bin documented in this encounter Plan of Treatment Not on file documented as of this encounter Visit Diagnoses Not on filedocumented in this encounter Care Teams Middle School Spanish Teacher Relationship Specialty Start Date End Date Mario Camarena MD PCP - General 09/11/10 11/29/19 Randy Small MD [address] [place] [address] PCP - General Internal Medicine 11/30/19 documented as of this encounter
--- OUTSIDE RECORDS SUMMARY | 2025-04-13 15:31 | XMS_ITS | Encounter Summary ---
Author Organization [facility] Prior to 02/25/2024 Address [address] [place] [address] Care Team Providers Care Splitting Machine Tender Name Role Phone Randy Small MD Primary Care Provider [phone] [phone] Reason for Visit * Reason Comments E-prescribe Rx Request Encounter Details Date Type Department Care Team Description 02/05/2020 Refill Adult Medicine [address] [id number] Anastasia Tony APRN [address] [place] [address] E-prescribe Rx Request Social History Tobacco Use [...] have Coronavirus / COVID-19? No / Unsure 01/09/2020 2:05 PM EDT documented as of this encounter Miscellaneous Notes * Telephone Encounter - Joy Villarreal M.A. - 02/06/2020 1:27 PM EDT Date of last office visit was 12/22/19. Lab Results Component Value Date NA 139 12/22/2019 K 4.3 12/22/2019 CO2 26 12/22/2019 CL 107 12/22/2019 BUN 15 12/22/2019 CREAT 0.96 12/22/2019 GLU 90 12/22/2019 CA 9.4 12/22/2019 GFR 59 12/22/2019 * Telephone Encounter - Isabela Vazquez - 02/06/2020 1:17 PM EDT Patient would like script to be: E-PRESCRIBED/FAXED TO PHARMACY WHEN WAS THE PATIENT'S LAST APPOINTMENT IN ADULT MEDICINE? 12/22/19 WHEN WAS THE LAST TIME THE PATIENT SAW THEIR PCP? Never saw Dr. Small, last saw Dr. Camarena 06/18/16 Does patient have an upcoming appointment? NO-Due for PE after 06/25/20 (THE MEDICATION REQUESTED IS ON THE MED LIST ABOVE) All of the medications requested were on the CURRENT MEDS list Did you check the Pharmacy information above?: YES Patient wants: 30 -day supply Is this a mail order prescription request ? NO If the refill is from a FAXED refill request what is the RX # listed on the fax? N/A Patients current insurance carrier is: Payor: [email or web address] FFS / Plan: [employer] / Product Type: MEDICAID RISK documented in this encounter Plan of Treatment Not on file documented as of this encounter Visit Diagnoses Not on filedocumented in this encounter Care Teams Splitting Machine Tender Relationship Specialty Start Date End Date Randy Small MD [address] [place] [address] PCP - General Internal Medicine 11/30/19 documented as of this encounter
--- OUTSIDE RECORDS SUMMARY | 2025-04-13 15:31 | XMS_ITS | Encounter Summary ---
Author Organization [facility] Prior to 02/25/2024 Address [address] [place] [address] Care Team Providers Care Chief Radiation Therapist Name Role Phone Mario Camarena MD Primary Care Provider [facility] able Randy Small MD Primary Care Provider [phone] [phone] Encounter Details Date Type Department Care Team Description 08/02/2019 Release of Information Medical Records [address] [place] [address] Abstract, Provider Social History Tobacco Use Types [...] on filedocumented in this encounter Care Teams Chief Radiation Therapist Relationship Specialty Start Date End Date Mario Camarena MD PCP - General 09/11/10 11/29/19 Randy Small MD [address] [place] [address] PCP - General Internal Medicine 11/30/19 documented as of this encounter
--- OUTSIDE RECORDS SUMMARY | 2025-04-13 15:31 | XMS_ITS | Encounter Summary ---
Author Organization [employer] [facility] Prior to 02/25/2024 Address [address] [place] [address] Care Team Providers Care It Investment/Portfolio Manager Name Role Phone Randy Small MD Primary Care Provider [phone] [phone] Encounter Details Date Type Department Care Team Description 10/13/2021 Orders Only Endocrinology - [address] [address] Akin Mix MD [address] [place] [address] Social History Tobacco Use Types Packs/Day Years Used Date Smoking Tobacco: Never Cigarettes 1 Smokeless Tobacco: Never Alcohol Use Standard Drinks/Week Comments No 0 (1 standard drink = 0.6 oz pur e alcohol) Sex Assigned at Date Recorded Not on file Job Start Date Occupation Industry Not on file Not on file Not on file COVID-19 Exposure Response Date Recorded In the last 10 days, have yo u been in contact with someone who was confirmed or suspected to have Coronavirus/COVID-19? No / Unsure 10/01/2021 1:01 PM EDT documented as of this encounter Plan of Treatment Not on file documented as of this encounter Visit Diagnoses Not on filedocumented in this encounter Care Teams It Investment/Portfolio Manager Relationship Specialty Start Date End Date Randy Small MD [address] [place] [address] PCP - General Internal Medicine 11/30/19 documented as of this encounter
--- OUTSIDE RECORDS SUMMARY | 2025-04-13 15:31 | XMS_ITS | Encounter Summary ---
Author Organization [facility] Prior to 02/25/2024 Address [address] [place] [address] Care Team Providers Care Insurance Legal Assistant Name Role Phone Mario Camarena MD Primary Care Provider [facility] Randy Small MD Primary Care Provider [phone] [phone] Reason for Visit * Reason Comments Encounter Details Date Type Department Care Team Description 09/04/2011 Telephone Adult Medicine [address] [address] Mario Camarena MD Social History Tobacco Use [...] on filedocumented in this encounter Care Teams Insurance Legal Assistant Relationship Specialty Start Date End Date Mario Camarena MD PCP - General 09/11/10 11/29/19 Randy Small MD [address] [place] [address] PCP - General Internal Medicine 11/30/19 documented as of this encounter
--- OUTSIDE RECORDS SUMMARY | 2025-04-13 15:31 | XMS_ITS | Encounter Summary ---
Author Organization [facility] Prior to 02/25/2024 Address [address] [place] [address] Care Team Providers Care Geographic Information Scientist Name Role Phone Randy Small MD Primary Care Provider [phone] [phone] Reason for Visit * Reason Comments E-prescribe Rx Request Encounter Details Date Type Department Care Team Description 01/20/2024 Refill Orthopedics-[address] [address] Randy Small MD [address] [place] [address] E-prescribe Rx Request Social History Tobacco Use [...] encounter Miscellaneous Notes * Telephone Encounter - Isabela Daily CMA - 01/21/2024 9:02 AM EDT Spoke with Sudha, at home patient resides in, and informed her of message. * Telephone Encounter - Joy Villarreal M.A. - 01/20/2024 4:26 PM EDT Date of last office visit was 08/19/23. Pended appt for 03/29/24 Lab Results Component Value Date NA 141 08/19/2023 K 4.5 08/19/2023 CO2 25 08/19/2023 CL 111 08/19/2023 BUN 14 08/19/2023 CREAT 0.90 08/19/2023 GLU 99 08/19/2023 CA 9.7 08/19/2023 GFR 71 08/19/2023 * Telephone Encounter - Griselda Arguelles - 01/20/2024 12:48 PM EDT Patient would like script to be: E-PRESCRIBED/FAXED TO PHARMACY WHEN WAS THE PATIENT'S LAST APPOINTMENT IN ADULT MEDICINE? 08/19/23 WHEN WAS THE LAST TIME THE PATIENT SAW THEIR PCP? Does patient have an upcoming appointment? Yes 03/29/24 (THE MEDICATION REQUESTED IS ON THE MED LIST ABOVE) All of the medications requested were on the CURRENT MEDS list Did you check the Pharmacy information above?: YES Patient wants: 90 -day supply Is this a mail order prescription request ? NO If the refill is from a FAXED refill request what is the RX # listed on the fax? N/A Patients current insurance carrier is: [facility] [employer] MCR / Plan: O $0 [facility] [id number] / Product Type: HMO [id number] documented in this encounter Plan of Treatment Not on file documented as of this encounter Visit Diagnoses Not on filedocumented in this encounter Care Teams Geographic Information Scientist Relationship Specialty Start Date End Date Rnady Small MD [address] [place] [address] PCP - General Internal Medicine 11/30/19 documented as of this encounter
--- OUTSIDE RECORDS SUMMARY | 2025-04-13 15:31 | XMS_ITS | Encounter Summary ---
Author Organization [employer] [facility] Prior to 02/25/2024 Address [address] [place] [address] Care Team Providers Care Commercial Real Estate Manager Name Role Phone Mario Camarena MD Primary Care Provider [facility] Randy Small MD Primary Care Provider [phone] [phone] Encounter Details Date Type Department Care Team Description 12/31/2010 Channel Installer Report Medical Records [address] [place] [address] Joel Amos Social History Tobacco Use Types Packs/Day Years [...] on filedocumented in this encounter Care Teams Commercial Real Estate Manager Relationship Specialty Start Date End Date Mario Camarena MD PCP - General 09/11/10 11/29/19 Randy Small MD [address] [place] [address] PCP - General Internal Medicine 11/30/19 documented as of this encounter
--- OUTSIDE RECORDS SUMMARY | 2025-04-13 15:31 | XMS_ITS | Encounter Summary ---
[facility] to 02/25/2024 Address [address] [place] [address] Care Team Providers Care Buyers' Agent Name Role Phone Mario Camarena MD Primary Care Provider [facility] Randy Small MD Primary Care Provider [phone] [phone] Reason for Visit * Reason Onset Date Comments Faxed Order 05/11/2017 [facility] Encounter Details Date Type Department Care Team Description 05/11/2017 Telephone Adult Medicine [address] [address] Mario Camarena MD Faxed Order ([facility]) Social History Tobacco Use Types Packs/Day Years [...] encounter Miscellaneous Notes * Telephone Encounter - Fatou Rojas - 05/11/2017 11:35 AM EST Placed in doctors bin on A SIDE: [facility] Please review, sign and fax when completed. documented in this encounter Plan of Treatment Not on file documented as of this encounter Visit Diagnoses Not on filedocumented in this encounter Care Teams Buyers' Agent Relationship Specialty Start Date End Date Mario Camarena MD PCP - General 09/11/10 11/29/19 Randy Small MD [address] [place] [address] PCP - General Internal Medicine 11/30/19 documented as of this encounter
--- OUTSIDE RECORDS SUMMARY | 2025-04-13 15:31 | XMS_ITS | Encounter Summary ---
Author Organization [facility] Prior to 02/25/2024 Address [address] [place] [address] Care Team Providers Care Swatch Maker Name Role Phone Mario Camarena MD Primary Care Provider Unavail able Randy Small MD Primary Care Provider [phone] [phone] Encounter Details Date Type Department Care Team Description 04/16/2014 Telephone Adult Medicine [address] [address] Mario Camarena MD Social History Tobacco Use Types Packs/Day Years Used Date Smoking Tobacco: Former Cigarettes 1 Smokeless Tobacco: Former Alcohol Use Standard Drinks/Week Comments No 0 [...] on filedocumented in this encounter Care Teams Swatch Maker Relationship Specialty Start Date End Date Mario Camarena MD PCP - General 09/11/10 11/29/19 Randy Small MD [address] [place] [address] PCP - General Internal Medicine 11/30/19 documented as of this encounter
--- OUTSIDE RECORDS SUMMARY | 2025-04-13 15:31 | XMS_ITS | Clinical Summary ---
Author Organization [facility] Prior to 02/25/2024 Address [address] [place] [address] Care Team Providers Care Social Worker Health Services Name Role Phone Randy Small MD Primary Care Provider [phone] [phone] Allergies No known active allergies Medications Medication Sig Dispensed Refills Start Date End Date Status lithium (ESKALITH) 450 MG CR tablet Take 450 mg by mouth at bedtime. 0 Active trazodone (DESYREL) 50 MG tablet 0 05/06/2019 Active risperidone (RISPERDAL) 2 MG tablet Take 1 Tablet by mouth 3 times daily. 0 Active benztropine (COGENTIN) 1 MG tablet Take 1 Tablet by mouth every morning AND 2 Tablets every evening. 0 12/07/2022 Active senna (Senna-Time) 8.6 MG tabletIndications:Cons tipation, unspecified constipation type Take 2 Tablets by mouth daily as needed for Constipation. 60 Tablet 5 12/07/2022 Active levothyroxine (SYNTHROID, LEVOTHROID) 25 MCG tabletIndications:Hypo thyroidism, unspecified type Take 1 Tablet by mouth daily. 90 Tablet 0 08/19/2023 Active Meclizine HCl 12.5 MG Tab Take 1 Tablet by mouth daily as needed for Other. TAKE 1 TABLET BY MOUTH DAILY NEEDED FOR VERTIGO 20 Tablet 1 08/19/2023 Active ferrous sulfate 325 (65 Fe) MG tabletIndications:Iron deficiency anemia, unspecified iron deficiency anemia type Take 1 Tablet by mouth daily. 90 Tablet 3 08/19/2023 Active Calcium Carb-Cholecalciferol 500-10 MG-MCG Chew TabIndications:Iron deficiency anemia, unspecified iron deficiency anemia type,Osteoarthritis of both knees, unspecified osteoarthritis type TAKE 1 TABLET BY MOUTH TWICE A DAY 180 Tablet 1 09/30/2023 Active acetaminophen (TYLENOL) 650 MG CR tablet Take 1 Tablet by mouth 3 times daily for 90 days. 90 Tablet 2 01/21/2024 Active Active Problems Problem Noted Date Thyroid nodule 02/10/2023 Overview: Tiny nodule, repeat us in 1 year (fall 2023) ordered History of COVID-19 01/13/2023 Overview: 01/04/23 - incidental at ED for other concern. Completed paxlovid Osteoarthritis of both knees 11/14/2018 Hypothyroid 02/09/2014 Hyperprolactinemia 07/31/2013 Overview: Level 106.9 on labs ordered by [facility] 07/07/13. Scarring alopecia 09/02/2011 Morbid obesity 10/17/2010 Iron deficiency anemia 10/17/2010 Schizophrenia 10/17/2010 Encounters Date Type Specialty Care Team Description 02/13/2025 Refill Adult Med Mayelin Longo NP E-prescribe Rx Request from Last 3 Months Immunizations Name Administration Dates Next Due COVID-19 (Pfizer) 06/18/2020,05/28/2020 Influenza (> 6 Months) 02/22/2015,2013,02/24/2013, 012 Influenza Flu (PT Reported) 01/26/2022 Influenza Vaccine-preservati ve Free-quadrivalent 4 Years 01/09/2020,06/23/2018 Tdap 10/17/2010 Family History Medical History Relation Name Comments Diabetes Mother Relation Name Status Comments Mother Social History Tobacco Use Types Packs/Day Years Used Date Smoking Tobacco: Never Cigarettes 1 Smokeless Tobacco: Never Tobacco Cessation:Counseling Given: Not Answered Alcohol Use Standard Drinks/Week Comments No 0 (1 standard drink = 0.6 oz pur e alcohol) Sex Assigned at Date Recorded Not on file Job Start Date Occupation Industry Not on file Not on file Not on file Last Filed Vital Signs Vital Sign Reading Time Taken Comments Blood Pressure 104/64 08/19/2023 10:02 AM EDT Pulse 70 08/19/2023 10:02 AM EDT Temperature 36.3 C (97.3 F) 10/01/2021 1:16 PM EDT Respiratory Rate 18 01/13/2023 1:45 PM EDT Oxygen Saturation 97% 10/01/2021 1:16 PM EDT Inhaled Oxygen Concentration - - Weight 110.9 kg (244 lb 9.6 oz) 024 10:02 AM EDT Height 170.2 cm (5' 7 ) 12/07/2022 11:2 1 AM EDT Body Mass Index 38.31 12/07/2022 11:21 AM EDT Plan of Treatment Health Maintenance Due Date Last Done Comments SHINGLES VACCINE (1 of 2) 08/28/2007 DTAP/TDAP/TD (2 - Td or Tdap) 10/17/2020 10/17/2010 PNEUMOCOCCAL VACCINE (1 - PCV) 2022 MAMMOGRAM 02/19/2023 02/19/2022, 05/2019 (Refused), 06/23/2018 (Refused), Additional history exists DEPRESSION SCREEN 12/08/2023 12/07/2022 (Completed) FALL RISK ASSESSMENT 12/08/2023 12/07/2022 (Complete d) BMI CHECK/ADVISE 04/26/2024 12/06/2022 (Com pleted), 04/06/2022, 12/03/2021, Additional history exists DEPRESSION SCREENING/FOLLOWUP 04/26/2024 (Completed), 12/03/2021, 06/26/2019 (Completed), Additional history exists BONE DENSITY SCREENING 07/23/2024 07/23/2022, 2010 Covid-19 Vaccine (3 - 2022-2 4 season) 2024 06/18/2020, 05/28/2020 INFLUENZA (#1) 2024 01/26/2022, 12/25, 06/26/2019 (Refused), Additional history exists COLON CANCER SCREENING - [place] 06/23/20252022 CHOLESTEROL SCREENING 12/08/2027 12/07/2022 , 09/26/2021, 06/23/2018, Additional history exists HEPATITIS C SCREENING Completed 10/28/2012 Care Teams Social Worker Health Services Relationship Specialty Start Date End Date Randy Small MD [address] [place] [address] PCP - General Internal Medicine 11/30/19
--- OUTSIDE RECORDS SUMMARY | 2025-04-13 15:31 | XMS_ITS | Encounter Summary ---
Author Organization [facility] Prior to 02/25/2024 Address [address] [place] [address] Care Team Providers Care Band Tier Name Role Phone Randy Small MD Primary Care Provider [phone] [phone] Reason for Visit * Reason Onset Date Comments Faxed Order 10/26/2023 [facility] Encounter Details Date Type Department Care Team Description 10/26/2023 Telephone Adult Medicine [address] [address] Randy Small MD [address] [place] [address] Faxed Order ([facility]) Social History Tobacco Use Types Packs/Day Years [...] encounter Miscellaneous Notes * Telephone Encounter - Eduarda Tucker - 10/26/2023 9:41 AM EDT Fax order from [facility] Review, sign and fax Place in nurse's bin documented in this encounter Plan of Treatment Not on file documented as of this encounter Visit Diagnoses Not on filedocumented in this encounter Care Teams Band Tier Relationship Specialty Start Date End Date Randy Small MD [address] [place] [address] PCP - General Internal Medicine 11/30/19 documented as of this encounter
--- OUTSIDE RECORDS SUMMARY | 2025-04-13 15:31 | XMS_ITS | Encounter Summary ---
Author Organization [facility] Prior to 02/25/2024 Address [address] [place] [address] Care Team Providers Care Assistant Coach Name Role Phone Mario Camarena MD Primary Care Provider [facility] Randy Orellana MD Primary Care Provider [phone] [phone] Reason for Visit * Reason Onset Date Comments Faxed Order 01/16/2019 [facility] Encounter Details Date Type Department Care Team Description 01/16/2019 Telephone Adult Medicine [address] [address] Mario Camarena MD Faxed Order ([facility]) Social History Tobacco Use Types Packs/Day Years [...] encounter Miscellaneous Notes * Telephone Encounter - Thomas Alvarez - 01/16/2019 11:51 AM EDT ORDER RECEIVED FACILITY: [facility] PLACED IN PROVIDER'S BIN ON: A-side PLEASE REVIEW, SIGN AND FAX BACK: [phone] documented in this encounter Plan of Treatment Not on file documented as of this encounter Visit Diagnoses Not on filedocumented in this encounter Care Teams Assistant Coach Relationship Specialty Start Date End Date Mario Camarena MD PCP - General 09/11/10 11/29/19 Randy Small MD [address] [place] [address] PCP - General Internal Medicine 11/30/19 documented as of this encounter
--- OUTSIDE RECORDS SUMMARY | 2025-04-13 15:32 | XMS_ITS | Encounter Summary ---
Author Organization [employer] [facility] Prior to 02/25/2024 Address [address] [place] [address] Care Team Providers Care Maintenance Analyst Name Role Phone Mario Camarena MD Primary Care Provider [facility] able Randy Small MD Primary Care Provider [phone] [phone] Encounter Details Date Type Department Care Team Description 06/18/2016 Release of Information Medical Records [address] [place] [address] Abstract, Provider Social History Tobacco Use Types [...] on filedocumented in this encounter Care Teams Maintenance Analyst Relationship Specialty Start Date End Date Mario Camarena MD PCP - General 09/11/10 11/29/19 Randy Small MD [address] [place] [address] PCP - General Internal Medicine 11/30/19 documented as of this encounter
--- OUTSIDE RECORDS SUMMARY | 2025-04-13 15:32 | XMS_ITS | Encounter Summary ---
Author Organization [facility] Prior to 02/25/2024 Address [address] [place] [address] Care Team Providers Care Export Sales Assistant Name Role Phone Randy Small MD Primary Care Provider [phone] Reason for Visit * Reason Onset Date Comments TEST RESULTS 09/27/2020 Encounter Details Date Type Department Care Team Description 09/27/2020 Telephone Adult Medicine [address] [id number] Randy Small MD [address] [place] [id number] TEST RESULTS Social History Tobacco Use Types Packs/Day Years [...] have Coronavirus / COVID-19? No / Unsure 09/25/2020 10:08 AM EDT documented as of this encounter Miscellaneous Notes * Telephone Encounter - Roxy Green - 09/27/2020 8:42 AM EDT Tried to contact the patient the VM box is not set up at this time. If patient returns my call please transfer to [phone] or remessage to b-side * Telephone Encounter - Roxy Green - 09/27/2020 8:42 AM EDT ----- Message from Randy Small MD sent at 09/26/2020 5:47 PM EDT ----- Please inform patient that I referred her to endocrinology because her prolactin levels are still high documented in this encounter Plan of Treatment Not on file documented as of this encounter Visit Diagnoses Not on filedocumented in this encounter Care Teams Export Sales Assistant Relationship Specialty Start Date End Date Randy Small MD [address] [place] [phone] PCP - General Internal Medicine 11/30/19 documented as of this encounter
--- OUTSIDE RECORDS SUMMARY | 2025-04-13 15:32 | XMS_ITS | Encounter Summary ---
Author Organization [facility] Prior to 02/25/2024 Address [address] [place] [address] Care Team Providers Care Tinner Helper Name Role Phone Randy Small MD Primary Care Provider [phone] Encounter Details Date Type Department Care Team Description 07/06/2022 Orders Only Medical Records [address] [place] [address] Randy Small MD [address] [place] [address] Social History Tobacco Use Types Packs/Day Years [...] suspected to have Coronavirus/COVID-19? No / Unsure 06/24/2022 3:19 PM EST documented as of this encounter Plan of Treatment Not on file documented as of this encounter Procedures Procedure Name Priority Date/Time Associated Diagnosis Comments OUTSIDE COLOGUARD Routine 06/23/2022 documented in this encounter Results * OUTSIDE COLOGUARD (06/23/2022) Randy Small MD PROCEDURES documented in this encounter Visit Diagnoses Not on filedocumented in this encounter Care Teams Tinner Helper Relationship Specialty Start Date End Date Randy Small MD [address] [place] [address] PCP - General Internal Medicine 11/30/19 documented as of this encounter
--- OUTSIDE RECORDS SUMMARY | 2025-04-13 15:32 | XMS_ITS | Encounter Summary ---
[facility] Address [address] [place] [address] Care Team Providers Care Medical Records Assistant Name Role Phone Randy Small MD Primary Care Provider [phone] Reason for Visit * Reason Comments E-prescribe Rx Request Encounter Details Date Type Department Care Team Description 12/04/2021 Refill Adult Medicine [address] [address] Ba Nath NP [address] [place] [address] E-prescribe Rx Request Social History Tobacco Use [...] suspected to have Coronavirus/COVID-19? No / Unsure 12/03/2021 8:40 AM EDT documented as of this encounter Miscellaneous Notes * Telephone Encounter - Madison Green - 12/04/2021 2:54 PM EDT Last office visit Yesterday Lab Results Component Value Date TSH 3.55 12/03/2021 * Telephone Encounter - Fatou Rojas - 12/04/2021 11:10 AM EDT Patient would like script to be: E-PRESCRIBED/FAXED TO PHARMACY WHEN WAS THE PATIENT'S LAST APPOINTMENT IN ADULT MEDICINE? 12/03/21 WHEN WAS THE LAST TIME THE PATIENT SAW THEIR PCP? Same as above Does patient have an upcoming appointment? Yes 04/06/22 (THE MEDICATION REQUESTED IS ON THE MED [...] N/A Patients current insurance carrier is: Payor: [facility] / Plan: [facility] / Product Type: MEDICAID RISK documented in this encounter Plan of Treatment Not on file documented as of this encounter Visit Diagnoses Diagnosis Hypothyroidism, unspecified type Iron deficiency anemia, unspecified iron deficiency anemia type Osteoarthritis of both knees, unspecified osteoarthritis type documented in this encounter Care Teams Medical Records Assistant Relationship Specialty Start Date End Date Randy Small MD [address] [place] [phone] PCP - General Internal Medicine 11/30/19 documented as of this encounter
--- OUTSIDE RECORDS SUMMARY | 2025-04-13 15:32 | XMS_ITS ---
Author Name [facility] Organization Unknown Care Team Organization Name Specialty Phone Email Start Date End Da te [facility] Randy Small Primary Care 03/03/2022 12/13/2023
--- OUTSIDE RECORDS SUMMARY | 2025-04-13 15:32 | XMS_ITS | Continuity of Care Document ---
Author Name [facility], Medical Address [address] [place] [id number] Organization Unknown Address [address] [place] [address] Medications No known medications Problems No known problems
--- OUTSIDE RECORDS SUMMARY | 2025-04-13 15:32 | XMS_ITS | Encounter Summary ---
[facility] Prior to 02/[facility] Address [address] [place] [address] Care Team Providers Care Air Traffic Control Manager Name Role Phone Randy Small MD Primary Care Provider [phone] Reason for Visit * Reason Comments E-prescribe Rx Request Encounter Details Date Type Department Care Team Description 10/23/2022 Refill Adult Medicine [address] [phone] Randy Small MD [address] [place] [phone] E-prescribe Rx Request Social History Tobacco Use [...] suspected to have Coronavirus/COVID-19? No / Unsure 10/08/2022 10:26 AM EDT documented as of this encounter Miscellaneous Notes * Telephone Encounter - Terri Proctor M.A. - 10/26/2022 8:48 AM EDT Denise 04/06/22 pended appt 12/07/22 Lab Results Component Value Date NA 141 09/26/2021 K 4.2 09/26/2021 CO2 27 09/26/2021 CL 108 09/26/2021 BUN 13 09/26/2021 CREAT 0.93 09/26/2021 GLU 101 09/26/2021 CA 10.1 09/26/2021 GFR > 60 09/26/2021 Lab Results Component Value Date TSH 3.55 12/03/2021 * Telephone Encounter - Alina [place] - 10/26/2022 8:29 AM EDT Patient would like script to be: E-PRESCRIBED/FAXED TO PHARMACY ?? WHEN WAS THE PATIENT'S LAST APPOINTMENT IN ADULT MEDICINE? 04/06/22 ?? WHEN WAS THE LAST TIME THE PATIENT SAW THEIR PCP? Same as above ?? Does patient have an upcoming appointment? Yes 12/07/2022 ?? (THE MEDICATION REQUESTED IS ON THE MED LIST ABOVE) All of the medications requested were on the CURRENT MEDS list ?? Did you check the Pharmacy information above?: YES ?? Patient wants: 90 -day supply ?? Is this a mail order prescription request ? NO ?? If the refill is from a FAXED refill request what is the RX # listed on the fax? N/A ?? Patients current [place] is: [place] Product Type[place] [id number] ?? documented in this encounter Plan of Treatment Not on file documented as of this encounter Visit Diagnoses Diagnosis Hypothyroidism, unspecified type Iron deficiency anemia, unspecified iron deficiency anemia type documented in this encounter Care Teams Air Traffic Control Manager Relationship Specialty Start Date End Date Randy Small MD [address] [place] [address] PCP - General Internal Medicine 11/30/19 documented as of this encounter
--- OUTSIDE RECORDS SUMMARY | 2025-04-13 15:32 | XMS_ITS | Encounter Summary ---
Author Organization [facility] Prior to 02/25/2024 Address [address] [place] [address] Care Team Providers Care Dredge Worker Name Role Phone Randy Small MD Primary Care Provider [phone] Reason for Visit * Reason Comments E-prescribe Rx Request Encounter Details Date Type Department Care Team Description 10/11/2020 Refill Orthopedics-[address] [address] Venancio Thorne PA-C E-prescribe Rx Request Social History Tobacco Use [...] encounter Miscellaneous Notes * Telephone Encounter - Martina Hurley M.A. - 10/11/2020 11:49 AM EDT Pls fill for corine Soriano documented in this encounter Plan of Treatment Not on file documented as of this encounter Visit Diagnoses Not on filedocumented in this encounter Care Teams Dredge Worker Relationship Specialty Start Date End Date Randy Small MD [address] [place] [phone] PCP - General Internal Medicine 11/30/19 documented as of this encounter
== END 2025-04-13 14:59 | disposition home or self-care (01) ==
PROVIDERS: PCP Student in an Organized Health Care Education/Training Program; Visit Provider Student in an Organized Health Care Education/Training Program
DX: Z23 Encounter for immunization (principal)